=== PATIENT | female | born 1960 | race African-American/Black ===

== ENCOUNTER 2019-01-20 14:42 | Emergency (ER) | payer MEDICARE ==
[2019-01-20 14:48] VITALS: TEMP 100.8
[2019-01-20] MEDS ORDERED: ACETAMINOPHEN TAB 500 MG TAB PO STA (15:05)
[2019-01-20] MEDS ORDERED: IBUPROFEN 600 MG TAB PO STA (15:05)
--- NOTE | 2019-01-20 15:29 | ED ---
General Adult HPI - General Chief complaint: Fever Stated complaint: Cough, sore throat Time Seen by Provider: 01/20/19 14:45 Source: patient, RN notes reviewed Mode of arrival: ambulatory Limitations: no limitations - History of Present Illness Initial comments: This is a 59-year-old female presents emergency Department complaining of having a fever and chills. Patient states been ongoing for a day now. Patient states she's had a little bit of a sore throat and a cough. Patient denies shortness of breath or difficulty breathing. Patient denies any chest pain or palpitations. Patient states when he coughs she does have a little pain in her abdomen but only when she is coughing. Patient denies any nausea vomiting diarrhea. Patient denies any rashes lesions or areas of erythema. Patient denies any dysuria hematuria urinary frequency. Patient denies any back pain. Patient denies being lightheaded dizzy or having any near syncopal episodes. Patient denies taking any medications for her fever. Patient denies any flu shot this year. - Related Data Home Medications Medication Instructions Recorded Confirmed Cholecalciferol [Vitamin D3] 1,000 unit PO DAILY 01/20/19 01/20/19 Ibuprofen [Motrin] 800 mg PO TID PRN 01/20/19 01/20/19 Previous Rx's Medication Instructions Recorded Oseltamivir [Tamiflu] 75 mg PO Q12HR #10 cap 01/20/19 Allergies Allergy/AdvReac Type Severity Reaction Status Date / Time No Known Allergies Allergy Verified 01/20/19 15:26 Review of Systems ROS Statement: Those systems with pertinent positive or pertinent negative responses have been documented in the HPI. ROS Other: All systems not noted in ROS Statement are negative. Past Medical History Additional Past Medical History / Comment(s): head injury History of Any Multi-Drug Resistant Organisms: None Reported Past Surgical History: Cholecystectomy, Hysterectomy Past Psychological History: No Psychological Hx Reported Smoking Status: Never smoker Past Alcohol Use History: None Reported Past Drug Use History: None Reported General Exam - General Exam Comments Initial Comments: GENERAL: Patient is well-developed and well-nourished. Patient is nontoxic and well- hydrated and is in mild distress. ENT: Neck is soft and supple. No significant lymphadenopathy is noted. Oropharynx is clear. Moist mucous membranes. Neck has full range of motion without eliciting any pain. EYES: The sclera were anicteric and conjunctiva were pink and moist. Extraocular movements were intact and pupils were equal round and reactive to light. Eyelids were unremarkable. PULMONARY: Unlabored respirations. Good breath sounds bilaterally. No audible rales rhonchi or wheezing was noted. CARDIOVASCULAR: There is a regular rate and rhythm without any murmurs gallops or rubs. ABDOMEN: Soft and nontender with normal bowel sounds. SKIN: Skin is clear with no lesions or rashes and otherwise unremarkable. NEUROLOGIC: Patient is alert and oriented x3. Cranial nerves II through XII are grossly intact. Motor and sensory are also intact. Normal speech, volume and content. Symmetrical smile. MUSCULOSKELETAL: Normal extremities with adequate strength and full range of motion. LYMPHATICS: No significant lymphadenopathy is noted PSYCHIATRIC: Normal psychiatric evaluation. Limitations: no limitations Course Vital Signs 01/20/19 14:45 Temperature 100.8 F H Pulse Rate 100 Respiratory 18 Rate Blood Pressure 163/89 O2 Sat by Pulse 98 Oximetry Medical Decision Making - Medical Decision Making Chest x-ray shows no acute abnormality.. Patient's influenza was positive. I gave the patient Tamiflu. - Lab Data Lab Results 01/20/19 01/20/19 Range/Units 15:17 15:17 Influenza Type A RNA Detected H (Not Detectd) Influenza Type B (PCR) Not Detected (Not Detectd) Group A Strep Rapid Negative (Negative) Disposition Clinical Impression: Influenza Disposition: HOME SELF-CARE Condition: Good Instructions (If sedation given, give patient instructions): Influenza (ED) Prescriptions: Oseltamivir [Tamiflu] 75 mg PO Q12HR #10 cap Is patient prescribed a controlled substance at d/c from ED?: No Referrals: Nonstaff,Physician [Primary Care Provider] - 1-2 days Time of Disposition: 15:54
--- NOTE | 2019-01-20 15:42 | XR ---
EXAMINATION TYPE: XR chest 2V DATE OF EXAM: 01/20/2019 COMPARISON: NONE HISTORY: Difficulty breathing TECHNIQUE: Frontal and lateral views of the chest are obtained. FINDINGS: There is no focal air space opacity, pleural effusion, or pneumothorax seen. The cardiac silhouette size is borderline enlarged. There is eventration of right hemidiaphragm. The osseous str uctures are intact. IMPRESSION: Cardiomegaly
[2019-01-20] MEDS ORDERED: OSELTAMIVIR 75 MG CAP PO STA (15:53)
[2019-01-20 16:06] VITALS: BP 124/58; PULSE 75
[2019-01-20 16:19] VITALS: RESP 22
== END 2019-01-20 16:19 | disposition home or self-care (01) ==
LOC: EC 14:42
DX: J11.1 Influenza due to unidentified influenza virus with other respiratory manifestations (principal)
CPT/HCPCS: 71046; 87081; 87430; 87502; 99283